=== PATIENT | female | born 1980 | race Caucasian/White ===

== ENCOUNTER 2018-01-07 16:13 | Observation (INO) ==
[2018-01-07] MEDS ORDERED: Ipratropium/Albuterol Neb 3 ML IH ONE (19:53)
[2018-01-07] MEDS ORDERED: methylPREDNISolone 125 MG/2 ML VIAL IVP ONE (19:53)
--- NOTE | 2018-01-07 19:59 | Emergency Department Note ---
Disposition Clinical Impression: Hypoxia, Tobacco abuse COPD (chronic obstructive pulmonary disease) Qualifiers: COPD type: unspecified COPD Qualified Code(s): J44.9 - Chronic obstructive pulmonary disease, unspecified Disposition: Admitted As Inpatient Condition: Fair Referrals: Liss Bonds CNP [Primary Care Provider] - Forms: ED Satisfaction Letter Time of Disposition: 21:06 General Adult HPI - General Chief complaint: ED General Medical Stated complaint: "seizure earlier today, O2 sat low" Time Seen by Provider: 01/07/18 19:11 Source: patient Mode of arrival: ambulatory Limitations: no limitations Nursing Notes Reviewed: Yes Vital Signs Reviewed: Yes - History of Present Illness HPI Narrative: 37-year-old female persists for evaluation seizure earlier today. Patient had a seizure which is similar to her prior seizures. Noted to be staring off into space while at work. Lasted less than a minute. No tongue biting or urinary incontinence. Patient states that she did get an EEG and has followed with neurology. Notes to have started on lamotrigine. Patient was noted be hypoxic at her doctor's office earlier today in the 80s. Patient does not take oxygen at home. Patient does wear some supplemental oxygen while on BiPAP at night. Patient reports dyspnea with a nonproductive cough for the past 3-4 days.. Patient denies any fevers. States she continues to smoke. No chest pain. No history of PE or DVTs. Pain Scale: 0 - Related Data Home Medications Medication Instructions Recorded Confirmed Carvedilol [Coreg] 6.25 mg PO BIDWM 09/15/17 11/23/17 Spironolactone [Aldactone] 25 mg PO DAILY 09/15/17 11/23/17 Fluticasone/Vilanterol [Breo 1 each IH BID 11/23/17 11/23/17 Ellipta 100-25 Mcg INH] Amlodipine Besylate 10 mg PO DAILY 01/07/18 01/07/18 Cholecalciferol (D-3) [Vitamin D] 1,000 unit PO DAILY 01/07/18 01/07/18 Lisinopril [Zestril] 40 mg PO DAILY 01/07/18 01/07/18 Potassium Chloride [K-Tab ER] 20 meq PO DAILY 01/07/18 01/07/18 hydroCHLOROthiazide 25 mg PO DAILY 01/07/18 01/07/18 [Hydrochlorothiazide] lamoTRIgine [Lamictal] 50 mg PO HS 01/07/18 01/07/18 Allergies Allergy/AdvReac Type Severity Reaction Status Date / Time levetiracetam [From [facility]] Allergy Rash Verified 01/07/18 17:08 Penicillins [PCN] Allergy Vomiting Verified 01/07/18 17:08 All systems ED: reviewed and negative except as stated. 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 - Social History Smoking Status: Current every day smoker Smokeless Tobacco Status: No (1-1.5 packs) Alcohol use: Reports: none Drug use: Reports: none Physical Exam - General Limitations: no limitations General appearance: alert, in no apparent distress, obese - Head Head exam: atraumatic, normocephalic, normal inspection - Eye Eye exam: Present: normal appearance, PERRL, EOMI - ENT ENT exam: normal exam, mucous membranes moist - Neck Neck exam: Present: normal inspection - Chest Chest inspection: Present: normal inspection, symmetric chest wall rise - Respiratory Respiratory exam: Present: wheezes (Inspiratory expiratory wheeze throughout), prolonged expiratory phase - Cardiovascular Cardiovascular exam: Present: regular rate - Abdominal Exam Abdominal exam: Present: soft, Non-Tender - Extremities Exam Extremities exam: Present: normal inspection. Absent: pedal edema - Back Exam Back exam: Present: normal inspection - Neurological Exam Neurological exam: Present: alert - Skin Skin exam: Present: warm, dry, intact, normal color Course Course Narrative: Patient was 90% on room air arrest. Patient is requiring some supplemental oxygen at baseline currently. Patient will get nebs, steroids. Disposition pending. - Reevaluation(s) Reevaluation #1: Repeat lung exam shows patient's aeration improved however the patient is continues to have bibasilar and respiratory wheezes throughout. Will re-dose the patient's nebs. Time: 20:47 Vital Signs Temperature 98.3 F 01/07/18 17:06 Pulse Rate 63 01/07/18 17:06 Respiratory Rate 18 01/07/18 17:06 Blood Pressure 100/66 01/07/18 17:06 O2 Sat by Pulse Oximetry 91 01/07/18 17:06 Temperature 98.3 F 01/07/18 19:38 Pulse Rate 57 01/07/18 19:38 Respiratory Rate 20 01/07/18 20:25 Blood Pressure 111/58 01/07/18 20:25 O2 Sat by Pulse Oximetry 92 01/07/18 20:25 Oxygen Delivery Oxygen Delivery Nasal Cannula Medical Decision Making - MDM Narrative Medical decision making narrative: 37 year old female percent following a seizure. Patient was noted be hypoxic on room air. Patient is requiring some supplemental oxygen. Patient's lungs reveal his respiratory respiratory wheezes throughout. Patient was treated with nebs as well as steroids. Patient has a 3-4 L [place] requirement at baseline. As the patient is requiring oxygen and does not have oxygen at baseline in the past the patient will be admitted to the hospital service for oxygen supplementation as well as nebs. Patient has had a nonproductive cough for the past 3-4 days. Antibiotics were not initiated in the ED as the patient has no findings suggestive of pneumonia and the patient's cough is been nonproductive. Patient d-dimer was negative as the patient is deemed low risk for PE. Patient was started on Rocephin and Zithromax given the patient's oxygen requirement as well as lung exam. Sputum culture was ordered at the recommendation of hospitalist. - Lab Data Lab results reviewed: Yes I reviewed the patient's lab results. Result diagrams: 01/07/18 19:29 01/07/18 19:29 Lab Results 01/07/18 01/07/18 01/07/18 Range/Units 19:29 19:29 19:56 WBC 8.7 (4.3-11.1) K/mcL RBC 5.39 H (3.82-4.97) M/mcL Hgb 16.0 H (11.5-15.4) g/dL Hct 48.4 H (35.3-44.9) % MCV 89.8 (83.0-100.0) fL MCH 29.7 (28.0-33.3) pg MCHC 33.1 (31.6-35.5) g/dL RDW 13.2 (11.5-14.5) % Plt Count 200 (140-400) K/mcL MPV 10.8 (9.4-12.4) fL Immature Gran % 0.3 (0-4) % Seg Neutrophils % 57.6 % Lymphocytes % 33.7 % Monocytes % 6.2 % Eosinophils % 1.7 % Basophils % 0.5 % Neutrophils # 5.0 (1.6-8.9) K/mcL Lymphocytes # 2.9 (0.6-4.6) K/mcL Monocytes # 0.5 (0.0-1.3) K/mcL Eosinophils # 0.2 (0.0-0.6) K/mcL Basophils # 0.0 (0.0-0.2) K/mcL D-Dimer 492 (0-500) ng/mLFEU Sodium 135 L (136-145) mEq/L Potassium 3.7 (3.5-5.1) mEq/L Chloride 99 (98-107) mEq/L Carbon Dioxide 32 H (23-29) mEq/L BUN 15 (6-20) mg/dL Creatinine 0.90 (0.60-1.20) mg/dL Est GFR ( Amer) > 60 (> 60) Est GFR (Non-Af Amer) > 60 (> 60) BUN/Creatinine Ratio 17 (6-26) Glucose 92 (70-105) mg/dL Calculated Osmolality 280 (280-300) Calcium 9.4 (8.6-10.3) mg/dL Troponin I < 0.03 (< 0.04) ng/mL - Radiology Data Radiology results reviewed: Yes I reviewed the patient's radiology results. Chest X-Ray 01/07/18 17:36 IMPRESSION: Linear scarring versus atelectasis in the left parahilar lung. D/ / Miguelangel Oconnell MD / Miguelangel Oconnell MD Interpreting Provider: Miguelangel Oconnell MD - EKG Data EKG #1 EKG attestation: Yes I reviewed and interpreted this EKG. EKG shows normal: sinus rhythm Rate: normal Rhythm: NSR [place]/QRS: normal T wave inversions noted in: v1 Interpretation: no acute changes, nonspecific ST-T wave changes
[2018-01-07 20:02] LABS: Basophils % 0.5 %; Eosinophils # 0.2 K/mcL (0.0-0.6); Eosinophils % 1.7 %; Hematocrit 48.4 % (35.3-44.9); Immature Granulocytes % 0.3 % (0-4); Lymphocytes # 2.9 K/mcL (0.6-4.6); Lymphocytes % 33.7 %; Mean Corpuscular HGB Conc 33.1 g/dL (31.6-35.5); Mean Corpuscular Hemoglobin 29.7 pg (28.0-33.3); Mean Corpuscular Volume 89.8 fL (83.0-100.0); Mean Platelet Volume 10.8 fL (9.4-12.4); Monocytes # 0.5 K/mcL (0.0-1.3); Monocytes % 6.2 %; Platelet Count 200 K/mcL (140-400); Red Blood Count 5.39 M/mcL (3.82-4.97); Red Cell Distribution Width 13.2 % (11.5-14.5); Segmented Neutrophils % 57.6 %
[2018-01-07 20:21] LABS: BUN/Creatinine Ratio 17 (6-26); Blood Urea Nitrogen 15 mg/dL (6-20); Calcium 9.4 mg/dL (8.6-10.3); Carbon Dioxide 32 mEq/L (23-29); Chloride 99 mEq/L (98-107); Glucose 92 mg/dL (70-105); Osmolality,Calculated 280 (280-300); Potassium 3.7 mEq/L (3.5-5.1); Sodium 135 mEq/L (136-145); Troponin I < 0.03 ng/mL (< 0.04); eGFR For Non-African Americans > 60 (> 60)
[2018-01-07] MEDS: Ipratropium/Albuterol Neb 3 ML IH ONE ×2 (21:03→23:07)
[2018-01-07] MEDS ORDERED: Nicotine 21 MG PATCH.TD24 TD ONE (21:05)
[2018-01-07] MEDS ORDERED: Azithromycin 500 MG in D5% in Water 250 ML IVPB ONE (21:23)
[2018-01-07] MEDS ORDERED: cefTRIAXone 1,000 MG in Water for inj. (sterile) 20 ML 10 ML IVP ONE (21:23)
--- NOTE | 2018-01-07 21:26 | Emergency Department Note ---
Disposition Clinical Impression: Hypoxia, Tobacco abuse COPD (chronic obstructive pulmonary disease) Qualifiers: COPD type: unspecified COPD Qualified Code(s): J44.9 - Chronic obstructive pulmonary disease, unspecified Disposition: Admitted As Inpatient Condition: Fair Referrals: Liss Bonds CNP [Primary Care Provider] - Forms: ED Satisfaction Letter General Adult HPI - General Chief complaint: ED General Medical Stated complaint: "seizure earlier today, O2 sat low" Time Seen by Provider: 01/07/18 19:11 Source: patient Mode of arrival: ambulatory Limitations: no limitations - History of Present Illness Pain Scale: 0 - Related Data Home Medications Medication Instructions Recorded Confirmed Carvedilol [Coreg] 6.25 mg PO BIDWM 09/15/17 01/07/18 Spironolactone [Aldactone] 25 mg PO DAILY 09/15/17 01/07/18 Fluticasone/Vilanterol [Breo 1 each IH BID 11/23/17 01/07/18 Ellipta 100-25 Mcg INH] Amlodipine Besylate 10 mg PO DAILY 01/07/18 01/07/18 Cholecalciferol (D-3) [Vitamin D] 1,000 unit PO DAILY 01/07/18 01/07/18 Lisinopril [Zestril] 40 mg PO DAILY 01/07/18 01/07/18 Potassium Chloride [K-Tab ER] 20 meq PO DAILY 01/07/18 01/07/18 hydroCHLOROthiazide 25 mg PO DAILY 01/07/18 01/07/18 [Hydrochlorothiazide] lamoTRIgine [Lamictal] 50 mg PO HS 01/07/18 01/07/18 Allergies Allergy/AdvReac Type Severity Reaction Status Date / Time levetiracetam [From [facility]] Allergy Rash Verified 01/07/18 17:08 Penicillins [PCN] Allergy Vomiting Verified 01/07/18 17:08 Constitutional: Denies: fever Cardiovascular: Denies: chest pain Respiratory: Denies: cough, dyspnea Gastrointestinal: Denies: abdominal pain, nausea, vomiting Past Medical History - Past Medical History Medical history: Reports: asthma, COPD, coronary artery disease, hypertension, seizures, other Surgical history: Reports: Psychiatric history: Reports: anxiety, depression, panic disorder 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 - Social History Smoking Status: Current every day smoker Smokeless Tobacco Status: No (1-1.5 packs) Alcohol use: Reports: none Drug use: Reports: none Physical Exam - General Limitations: no limitations General appearance: alert, in no apparent distress, obese Course Vital Signs Temperature 98.3 F 01/07/18 17:06 Pulse Rate 63 01/07/18 17:06 Respiratory Rate 18 01/07/18 17:06 Blood Pressure 100/66 01/07/18 17:06 O2 Sat by Pulse Oximetry 91 01/07/18 17:06 Temperature 98.3 F 01/07/18 19:38 Pulse Rate 57 01/07/18 19:38 Respiratory Rate 20 01/07/18 20:25 Blood Pressure 111/58 01/07/18 20:25 O2 Sat by Pulse Oximetry 92 01/07/18 20:25 Oxygen Delivery Oxygen Delivery Nasal Cannula Medical Decision Making - Lab Data Result diagrams: 01/07/18 19:29 01/07/18 19:29 Lab Results 01/07/18 01/07/18 01/07/18 Range/Units 19:29 19:29 19:56 WBC 8.7 (4.3-11.1) K/mcL RBC 5.39 H (3.82-4.97) M/mcL Hgb 16.0 H (11.5-15.4) g/dL Hct 48.4 H (35.3-44.9) % MCV 89.8 (83.0-100.0) fL MCH 29.7 (28.0-33.3) pg MCHC 33.1 (31.6-35.5) g/dL RDW 13.2 (11.5-14.5) % Plt Count 200 (140-400) K/mcL MPV 10.8 (9.4-12.4) fL Immature Gran % 0.3 (0-4) % Seg Neutrophils % 57.6 % Lymphocytes % 33.7 % Monocytes % 6.2 % Eosinophils % 1.7 % Basophils % 0.5 % Neutrophils # 5.0 (1.6-8.9) K/mcL Lymphocytes # 2.9 (0.6-4.6) K/mcL Monocytes # 0.5 (0.0-1.3) K/mcL Eosinophils # 0.2 (0.0-0.6) K/mcL Basophils # 0.0 (0.0-0.2) K/mcL D-Dimer 492 (0-500) ng/mLFEU Sodium 135 L (136-145) mEq/L Potassium 3.7 (3.5-5.1) mEq/L Chloride 99 (98-107) mEq/L Carbon Dioxide 32 H (23-29) mEq/L BUN 15 (6-20) mg/dL Creatinine 0.90 (0.60-1.20) mg/dL Est GFR ( Amer) > 60 (> 60) Est GFR (Non-Af Amer) > 60 (> 60) BUN/Creatinine Ratio 17 (6-26) Glucose 92 (70-105) mg/dL Calculated Osmolality 280 (280-300) Calcium 9.4 (8.6-10.3) mg/dL Troponin I < 0.03 (< 0.04) ng/mL Attestation Statement - Attestation Attestation: I examined this patient and my medical decision-making was reviewed with the Resident Physician. I agree with the documented findings, disposition and treatment plan as described except to the extent set forth below. 37 year old female who has a history of seizure like activity but does not take seizure medications presntes to the ED after having a pyschosomatic seizure but did become hypoxic today to 80% for her PCP. PAtient states she has been exposed to viral URI type symptoms by other family members and has felt febrile at home and has a hsitroy of assthma and feels like she has needed to increased her oxygen requirements at home. PAtinet states that this has happened to her inthe past with her bronchtis flare. She is 91% on 3LNC. We have given breathing treatments and steroids and ABX and will admit to medicine
[2018-01-08] MEDS: Ipratropium/Albuterol Neb 3 ML IH SCH ×3 (03:52→15:51)
[2018-01-08] MEDS ORDERED: Naloxone 0.4 MG/ML INJ IVP PRN (07:47)
--- NOTE | 2018-01-08 08:04 | Internal Med History&Physical ---
Date of Encounter: 01/08/18 Time of Encounter: 07:57 Internal Medicine - H&P: HPI Chief complaint: Hypoxia, Seizure Admitted From: Home Plans for Post Hospital Care: Home History of present illness: Ms. Cross is a 37 year old female with a past medical history of asthma, COPD, seizure disorder who presented to the emergency department for evaluation after breakthrough seizure earlier in the day. Patient has a history of seizure disorder and has recently been started on lamotrigine. Patient states that her seizures mainly consist of absent seizures and was told at work that she was staring off. Patient states that her seizures have been overall much improved since starting lamotrigine 1 week ago. Patient also had an office appointment yesterday afternoon and was noted to be hypoxic in the mid 80s via pulse oximetry. Patient states that she has recently developed a productive cough and has multiple sick family members. Patient was given IV antibiotics as well as IV steroids in the emergency department and states her breathing is improved from admission. Patient denies any fevers at home denies any chest pain, nausea , vomiting, diarrhea, headache, blurry vision, double vision. Patient had no loss of bowel or bladder function during reported seizure event. Patient had no tongue lacerations reported. Patient has been on BiPAP overnight. Patient states she has BiPAP at home. Past Med Surg Social Fam HX - Past Medical History Medical history: asthma, COPD, coronary artery disease, hypertension, seizures, other Additional medical history: "stiff heart", sleep apnea Psychiatric history: anxiety, depression, panic disorder - Past Surgical History Surgical History: Additional surgical history: tubal, heart cath (no stents, 10/10/15) - Social History Smoking Status: Current every day smoker Smokeless Tobacco Status: No (1-1.5 packs) Alcohol use: none Drug use: none - Family History Father History Unknown: Yes Adopted: No Living Status: Hx Family Cardiac Disorders: Yes Hx Family Respiratory Disorders: No Hx Family Cancer: No Hx Family GI Disorders: No Hx Family Endocrine Disorder: No Hx Family Neuromuscular Disorders: No Hx Family Neurologic Disorders: No Hx Family HEENT Disorders: No Hx Family Autoimmune Disorders: No Internal Medicine - H&P: Meds Carvedilol [Coreg] 6.25 mg PO BIDWM 09/15/17 [History] Spironolactone [Aldactone] 25 mg PO DAILY 09/15/17 [History] Fluticasone/Vilanterol [Breo Ellipta 100-25 Mcg INH] 1 each IH BID 11/23/17 [ History] Amlodipine Besylate 10 mg PO DAILY 01/07/18 [History] Cholecalciferol (D-3) [Vitamin D] 1,000 unit PO DAILY 01/07/18 [History] Lisinopril [Zestril] 40 mg PO DAILY 01/07/18 [History] Potassium Chloride [K-Tab ER] 20 meq PO DAILY 01/07/18 [History] hydroCHLOROthiazide [Hydrochlorothiazide] 25 mg PO DAILY 01/07/18 [History] lamoTRIgine [Lamictal] 50 mg PO HS 01/07/18 [History] 3 Allergy/AdvReac Type Severity Reaction Status Date / Time levetiracetam [From [facility]] Allergy Rash Verified 01/07/18 17:08 Penicillins [PCN] AdvReac Vomiting Verified 01/08/18 07:36 All Systems PM: A 10-system review of systems was performed and is negative for pertinent findings except as documented above in the HPI. Review of systems: 10 point review of systems obtained and is otherwise negative other than described in history of present illness - Constitutional Vitals: Temp Pulse Resp BP Pulse Ox 98.3 F 63 17 112/60 93 01/08/18 04:53 01/08/18 04:53 01/08/18 04:53 01/08/18 04:53 01/08/18 04:53 Exam: Constitutional: No acute distress, Alert, on bipap Psych: AAO x 3 HEENT: NCAT, EOMI Neck: supple, no JVD Cardio: regular rate and rhythm, +s1s2, no murmurs/rubs/gallops, no JVD Resp: diffuse inspiratory and expiratory wheezes, no accessory muscle use Abd: obese, soft, non tender/non distended, positive bowel sounds, no gaurding/ reboud/ridgitity Extremities: no clubbing/cyanosis/edema appreciated Neuro: no focal deficits appreciated Lymph: no cervical/supraclavicular adenopahty apprecitated Internal Med - H&P Results - Labs CBC & Chem 7: 01/07/18 19:29 01/07/18 19:29 - Assessment and plan (1) Acute and chronic respiratory failure with hypoxia Current Visit: Yes Status: Acute Assessment and plan: Patient with acute hypoxic respiratory failure with chronic respiratory failure requiring home oxygen supplementation -Likely secondary to bronchitis viral versus bacterial etiology -Improved with IV steroids; will continue and transition to by mouth for 2 week taper -Discussed with pulmonology -Continue azithromycin for 5 days; given 1 dose of Rocephin in ED -Obtain sputum sample -Duo nebs -BiPAP when necessary and daily at bedtime -Echo ordered by pulmonary for evaluation of pulmonary hypertension (2) Breakthrough seizure Current Visit: Yes Status: Acute Assessment and plan: Patient with reported breakthrough seizure yesterday. -Reported seizures are much more controlled since starting lamotrigine 1 week ago with this being the only breakthrough seizure -the patient states that she was having many siezures every day or 2 prior to this -Continue lamotrigine -Outpatient neurology follow-up (3) RACHELLE (obstructive sleep apnea) Current Visit: Yes Status: Acute Assessment and plan: -Continue bipap qhs -echo for eval of pulm htn (4) Morbid obesity Current Visit: Yes Status: Acute Assessment and plan: Counseled on lifestyle modifications (5) Tobacco dependence due to cigarettes Current Visit: Yes Status: Acute Assessment and plan: Counseled on cessation from tobacco (6) Hypertension Current Visit: Yes Status: Acute Assessment and plan: Continue home medications -blood pressure controlled Qualifiers: Hypertension type: essential hypertension Qualified Code(s): I10 - Essential (primary) hypertension - Time Spent With Patient Total time spent is greater than 50% in coordination of care (as documented) at patient's floor/unit and/or counseling patient: Greater than 35 minutes
--- NOTE | 2018-01-08 08:18 | Pulmonology Consult Note ---
Date of Encounter: 01/08/18 Time of Encounter: 08:16 Assessment and Plan (1) Acute and chronic respiratory failure with hypoxia Current Visit: Yes Status: Acute Patient has evidence of acute on chronic hypoxemia. She will need to wear supplemental oxygen at all times to keep saturation greater than 88%. 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 I explained to her that the profession she could not from pulmonary standpoint not continue because the risk of inducing seizures in which could precipitate neurological damage including anoxic brain injury along with sudden cardiac from underlying pulmonary hypertension and that she would need to wear oxygen 24 hours a day and most likely. At this point she is refusing to do that despite the risk of that outlined above. I do recommend that she have walking walking pulse oximetry prior to discharge to (6 minute walk test) to confirm the amount of supplemental oxygen she will need with exertion she does have portable tanks at home (2) COPD exacerbation Current Visit: Yes Status: Acute Continue IV steroids today can be transitioned to oral glucocorticoids 40 mg of prednisone which can be tapered over the next 2 weeks Her current regimen for COPD includes Breo which she should use 1 puff daily Recommend nebulized duo nebs every 6 hours scheduled with the albuterol for breakthrough shortness of breath I have added on a respiratory infection panel and I think that azithromycin (Z- Kostas) would be appropriate antimicrobial coverage pending results of sputum and respiratory infectious panel. (3) Tobacco abuse Current Visit: Yes Status: Acute It is imperative that patient stop smoking and I have given her extensive tobacco cessation counseling (4) Breakthrough seizure Current Visit: Yes Status: Acute (5) RACHELLE (obstructive sleep apnea) Current Visit: Yes Status: Acute Continue BiPAP at night she is following with [facility] for optimization of her RACHELLE (6) Morbid obesity Current Visit: Yes Status: Acute Weight loss encouraged to exercise as tolerated and portion control and heart healthy diet (7) Pulmonary hypertension Current Visit: Yes Status: Acute This is a combination of WHO group 2 and group 3 pulmonary hypertension I stressed the absolute importance of supplemental oxygen wearing BiPAP at night for treatment of a pulmonary hypertension and continuing to follow with [facility] for treatment of diastolic heart failure I have requested an echocardiogram be done while inpatient along with a CT scan of her chest for further consideration of etiologies of her pulmonary hypertension and degree of right ventricular dysfunction She has undergone a VQ scan in the past which was negative for acute or chronic venous thromboembolism at that time I believe this was in 2016 From a pulmonary standpoint if patient stable through the course of the day I think he will be safe for her to be discharged later in the afternoon/early evening after testing has been completed she will need outpatient pulmonary follow-up within 1-2 weeks his impaired that she wear oxygen. Thank you very much for this consultation I discussed my impression and plan directly with the primary hospitalist Dr. Sosa History of Present Illness Consult date: 01/08/18 Requesting physician: Marcello Sosa Reason for consult: hypoxemia Chief complaint: Difficulty in Breathing History of present illness: This is a very pleasant 37-year-old woman who had the pleasure of meeting for the first time yesterday in pulmonary clinic where she presented with acute on chronic hypoxic respiratory failure secondary to COPD exacerbation she also suffers from underlying RACHELLE pulmonary hypertension which is combination of chronic hypoxemia and diastolic heart failure she also has a history of long- standing seizure disorders and in fact had had a seizure earlier in the day at work prior to presentation to the outpatient pulmonary clinic given complexity of situation for her own safety recommend that she be observed for 24 hours in the hospital as she was hypoxemic on arrival to the outpatient clinic. Since she has been admitted to the hospital she is receiving IV steroids and a dose of azithromycin chest x-ray was clear evidence of pneumonia but there may be some focal atelectasis versus linear scarring. She has been quite stable otherwise and says no further episodes of seizures she does notice some wheezing today Past Med Surg Social Fam HX - Past Medical History Medical history: asthma, COPD, coronary artery disease, hypertension, seizures, other Additional medical history: "stiff heart", sleep apnea Psychiatric history: anxiety, depression, panic disorder - Past Surgical History Surgical History: Additional surgical history: tubal, heart cath (no stents, 10/10/15) - Social History Smoking Status: Current every day smoker Smokeless Tobacco Status: No (1-1.5 packs) Alcohol use: none Drug use: none - Family History Father History Unknown: Yes Adopted: No Living Status: Hx Family Cardiac Disorders: Yes Hx Family Respiratory Disorders: No Hx Family Cancer: No Hx Family GI Disorders: No Hx Family Endocrine Disorder: No Hx Family Neuromuscular Disorders: No Hx Family Neurologic Disorders: No Hx Family HEENT Disorders: No Hx Family Autoimmune Disorders: No Medications and Allergies Carvedilol [Coreg] 6.25 mg PO BIDWM 09/15/17 [History] Spironolactone [Aldactone] 25 mg PO DAILY 09/15/17 [History] Fluticasone/Vilanterol [Breo Ellipta 100-25 Mcg INH] 1 each IH BID 11/23/17 [ History] Amlodipine Besylate 10 mg PO DAILY 01/07/18 [History] Cholecalciferol (D-3) [Vitamin D] 1,000 unit PO DAILY 01/07/18 [History] Lisinopril [Zestril] 40 mg PO DAILY 01/07/18 [History] Potassium Chloride [K-Tab ER] 20 meq PO DAILY 01/07/18 [History] hydroCHLOROthiazide [Hydrochlorothiazide] 25 mg PO DAILY 01/07/18 [History] lamoTRIgine [Lamictal] 50 mg PO HS 01/07/18 [History] 3 Allergy/AdvReac Type Severity Reaction Status Date / Time levetiracetam [From [facility]] Allergy Rash Verified 01/07/18 17:08 Penicillins [PCN] AdvReac Vomiting Verified 01/08/18 07:36 All Systems: The remainder of the systems were reviewed and are negative Physical Examination Vital Signs: Vital Signs, Last 4 Hours Temp Pulse Resp BP Pulse Ox 01/08/18 04:53 98.3 F 63 17 112/60 93 01/08/18 04:29 94 General appearance: no acute distress Eyes: nonicteric ENT: oropharynx moist Mallampati (class): 4 Neck: supple Effort: mildly labored Auscultation: bilateral: diminished breath sounds, wheezes (Patient has evidence of inspiratory and expiratory wheezing and almost all lung diane except the anterior left) Cardiovascular: regular rate and rhythm Gastrointestinal: normoactive bowel sounds, soft, non-tender, other (There is an umbilical hernia hernia present) Integumentary: normal Extremities: no cyanosis, no clubbing, edema Musculoskeletal: no deformities normal mental status, non-focal exam mood appropriate Results - Laboratory Findings CBC and BMP: 01/07/18 19:29 01/07/18 19:29 PT/INR, D-dimer D-Dimer 492 ng/mLFEU (0-500) 01/07/18 19:56 Abnormal lab findings: Abnormal lab results RBC 5.39 M/mcL (3.82-4.97) H 01/07/18 19:29 Hgb 16.0 g/dL (11.5-15.4) H 01/07/18 19:29 Hct 48.4 % (35.3-44.9) H 01/07/18 19:29 Sodium 135 mEq/L (136-145) L 01/07/18 19:29 Carbon Dioxide 32 mEq/L (23-29) H 01/07/18 19:29 - Diagnostic Findings Chest x-ray: report reviewed, image reviewed - Clinical Findings Intake & Output: Intake & Output 01/07/18 01/08/18 01/08/18 23:59 07:59 15:59 Weight 146.284 kg Consult Discharge Plan - Plan Referrals: Liss Bonds, LANGUAGE AND LITERATURE DIVISION CHAIR [Primary Care Provider] -
[2018-01-08 08:27] LABS: Basophils % 0.1 %; Hematocrit 49.2 % (35.3-44.9); Hemoglobin 16.2 g/dL (11.5-15.4); Immature Granulocytes % 0.7 % (0-4); Lymphocytes % 14.2 %; Mean Corpuscular HGB Conc 32.9 g/dL (31.6-35.5); Mean Platelet Volume 10.2 fL (9.4-12.4); Monocytes # 0.1 K/mcL (0.0-1.3); Monocytes % 1.1 %; Neutrophils # 5.9 K/mcL (1.6-8.9); Platelet Count 196 K/mcL (140-400); Red Blood Count 5.59 M/mcL (3.82-4.97); Red Cell Distribution Width 12.9 % (11.5-14.5); Segmented Neutrophils % 83.9 %
[2018-01-08 08:32] VITALS: BP 102/66
--- NOTE | 2018-01-08 08:34 | Neurology - Consult Note ---
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 Plan : Add Vimpat 50 mg PO BID Continue Lamotrigin 50 mg HS History of Present Illness Chief complaint: Seizure disorder HPI: Ms. Cross is a 37 year old female with a past diagnosis of seizure disorder who was admitted to [facility] via ED for evaluation of seizure disorder She states that she has had seizure - absence type for more than a year and she is on lamotrigin . She is taking her medication regularly, never misses doses. She has more frequent attack recently. The last episode was on last sunday and recent one was on yesterday noon.. It did last for about less than 1 minutes / sometime 5-10 second. She states that during attack she stares, has lapse of memory and unresponsive . She didn't have seizure activity since admission. She denies stiffness in the limbs,nausea , vomiting, post ictal confusion . She is the patient of chronic asthma and COPD with hypoxic episode .Vitals Tem 98.3, Pulse 63, BP 112/60 sat 93 , Lab : WBC 7.1 Na 135, K 3.7 BUN 15, creatinine 0.90 , glucose 92 Chest Echo awaited Past Med Surg Social Fam HX - Past Medical History Medical history: asthma, COPD, coronary artery disease, hypertension, seizures, other Additional medical history: "stiff heart", sleep apnea Psychiatric history: anxiety, depression, panic disorder - Past Surgical History Surgical History: Additional surgical history: tubal, heart cath (no stents, 10/10/15) - Social History Smoking Status: Current every day smoker Smokeless Tobacco Status: No (1-1.5 packs) Alcohol use: none Drug use: none - Family History Father History Unknown: Yes Adopted: No Living Status: Hx Family Cardiac Disorders: Yes Hx Family Respiratory Disorders: No Hx Family Cancer: No Hx Family GI Disorders: No Hx Family Endocrine Disorder: No Hx Family Neuromuscular Disorders: No Hx Family Neurologic Disorders: No Hx Family HEENT Disorders: No Hx Family Autoimmune Disorders: No Medications and Allergies Carvedilol [Coreg] 6.25 mg PO BIDWM 09/15/17 [History] Spironolactone [Aldactone] 25 mg PO DAILY 09/15/17 [History] Fluticasone/Vilanterol [Breo Ellipta 100-25 Mcg INH] 1 each IH BID 11/23/17 [ History] Amlodipine Besylate 10 mg PO DAILY 01/07/18 [History] Cholecalciferol (D-3) [Vitamin D] 1,000 unit PO DAILY 01/07/18 [History] Lisinopril [Zestril] 40 mg PO DAILY 01/07/18 [History] Potassium Chloride [K-Tab ER] 20 meq PO DAILY 01/07/18 [History] hydroCHLOROthiazide [Hydrochlorothiazide] 25 mg PO DAILY 01/07/18 [History] lamoTRIgine [Lamictal] 50 mg PO HS 01/07/18 [History] Lacosamide [Vimpat] 50 mg PO BID 30 Days #60 tablet 01/08/18 [Rx] levoFLOXacin [Levaquin] 750 mg PO DAILY 7 Days #7 tablet 01/08/18 [Rx] predniSONE [PredniSONE] 10 mg PO DAILY 12 Days #32 tablet 01/08/18 [Rx] 3 Allergy/AdvReac Type Severity Reaction Status Date / Time levetiracetam [From [facility]] Allergy Rash Verified 01/07/18 17:08 Penicillins [PCN] AdvReac Vomiting Verified 01/08/18 07:36 All Systems: The remainder of the systems were reviewed and are negative Physical Examination - Vital Signs Vital Signs: Initial Vital Signs Temp Pulse Resp BP Pulse Ox 98.3 F 63 18 100/66 91 01/07/18 17:06 01/07/18 17:06 01/07/18 17:06 01/07/18 17:06 01/07/18 17:06 - Constitutional General appearance: comfortable - Neurologic Sensorimotor examination: intact Detailed motor examination: grossly full strength in all extremities Motor examination - right side: 5/5: deltoids, biceps, triceps, wrist flexion, wrist extension, typesetters printer, hip flexors, tibialis Anterior, quadriceps, toe extension (EHL), plantarflexion Motor examination - left side: 55: deltoids, biceps, triceps, wrist flexion, wrist extension, hip flexors, typesetters printer, quadriceps, tibialis Anterior, toe extension (EHL), plantarflexion Detailed sensory examination: intact Reflex and gait examination: normal gait Reflexes: Biceps: 2+, Triceps: 2+, Brachioradialis: 2+, Patella: 2+, Achilles: 2 + Mental Status Examination: awake, alert, oriented to person, oriented to place, oriented to time, follows commands appropriately, answers questions appropriately, no aphasia Cerebellar examination: no dysmetria, performs finger to nose and heel to tucker symmetrically without ataxia, no gait ataxia Results - Laboratory Findings CBC and BMP: 01/08/18 08:03 01/07/18 19:29 Abnormal lab findings: Abnormal lab results RBC 5.39 M/mcL (3.82-4.97) H 01/07/18 19:29 Hgb 16.0 g/dL (11.5-15.4) H 01/07/18 19:29 Hct 48.4 % (35.3-44.9) H 01/07/18 19:29 Sodium 135 mEq/L (136-145) L 01/07/18 19:29 Carbon Dioxide 32 mEq/L (23-29) H 01/07/18 19:29 Consult Discharge Plan - Plan Referrals: Liss Bonds, METALSMITH HELPER [Primary Care Provider] - Prescriptions: Lacosamide [Vimpat] 50 mg PO BID 30 Days #60 tablet levoFLOXacin [Levaquin] 750 mg PO DAILY 7 Days #7 tablet predniSONE [PredniSONE] 10 mg PO DAILY 12 Days #32 tablet <Sherlyn Apodaca I - Last Filed: 01/08/18 16:23> Date of Encounter: 01/08/18 Assessment and Plan (1) Breakthrough seizure Current Visit: Yes Status: Acute Pt was seen and examined, my medical decision was reviewed with the Resident Physician, I agree with the documented findings, disposition and treatment plas as described except to the extent set forth below Patient with a known history of seizure disorder had an abnormal EEG has been following up with Dr. Marion in neurology clinic admitted with breakthrough seizures likely exacerbated by hypoxemia Currently she is on the low-esclating dose of lamotrigine that may take a while to start working as she is having these frequent episodes suggested to add another anticonvulsive agent like Vimpat 50 mg twice a day, and continue on lamotrigine for now The dose could be adjusted later on as an outpatient she can follow-up with Dr. Marion after the discharge From neurology standpoint she is a stable could be discharged with follow-up in few weeks Sherlyn Apodaca MD History of Present Illness HPI: Ms. Cross is a 37 year old female All Systems: The remainder of the systems were reviewed and are negative Physical Examination - Vital Signs Vital Signs: Initial Vital Signs Temp Pulse Resp BP Pulse Ox 98.3 F 63 18 100/66 91 01/07/18 17:06 01/07/18 17:06 01/07/18 17:06 01/07/18 17:06 01/07/18 17:06 Results - Laboratory Findings CBC and BMP: 01/08/18 08:03 01/07/18 19:29 Abnormal lab findings: Abnormal lab results RBC 5.59 M/mcL (3.82-4.97) H 01/08/18 08:03 Hgb 16.2 g/dL (11.5-15.4) H 01/08/18 08:03 Hct 49.2 % (35.3-44.9) H 01/08/18 08:03 Sodium 135 mEq/L (136-145) L 01/07/18 19:29 Carbon Dioxide 32 mEq/L (23-29) H 01/07/18 19:29
[2018-01-08] MEDS ORDERED: Cholecalciferol (D-3) 1,000 UNIT TABLET PO SCH (09:00)
[2018-01-08] MEDS ORDERED: amLODIPine 5 MG TABLET PO SCH (09:00)
[2018-01-08] MEDS ORDERED: NON-FORMULARY MEDICATION 1 EACH EACH (Fluticasone/Vilanterol [Breo Ellipta 100-25 Mcg Inh] IH SCH (09:00)
[2018-01-08] MEDS ORDERED: Spironolactone 25 MG TABLET PO SCH (09:00)
[2018-01-08] MEDS ORDERED: Lisinopril 20 MG TABLET PO SCH (09:00)
[2018-01-08] MEDS ORDERED: hydroCHLOROthiazide 25 MG TABLET PO SCH (09:00)
[2018-01-08] MEDS ORDERED: Budesonide/Formoterol 160/4.5 1 PUFF INH IH SCH (10:00)
[2018-01-08] MEDS: MethylPREDNISolone 40 MG/ML VIAL IVP SCH ×2 (11:48→15:05)
[2018-01-08] MEDS ORDERED: *HR* Heparin 5,000 UNIT/ML VIAL SQ SCH (14:00)
[2018-01-08] MEDS ORDERED: predniSONE 20 MG TABLET PO SCH (15:30)
--- NOTE | 2018-01-08 15:34 | Discharge Summary ---
- NOTES TO OUTPATIENT PROVIDER Notes to Outpatient Provider: Follow up outpatient with pulmonology and neurology. Left AMA prior to ECHO and 6 minute walk test. Orders not resulted at time of discharge: Pending orders 01/08/18 07:52 Respiratory Infection Panel [MOLMIC] Stat 01/08/18 07:53 EV echocardiogram w enhance Stat 01/08/18 16:00 Complete Blood Count [HEME] Q8H 01/09/18 04:00 Basic Metabolic Panel AM 0400 Date of Encounter: 01/08/18 Time of Encounter: 16:02 - Discharge Diagnosis (1) Acute and chronic respiratory failure with hypoxia Priority: Primary Status: Acute (2) Breakthrough seizure Priority: Secondary Status: Acute (3) RACHELLE (obstructive sleep apnea) Priority: Secondary Status: Acute (4) Morbid obesity Priority: Secondary Status: Acute (5) Tobacco dependence due to cigarettes Priority: Secondary Status: Acute (6) Hypertension Priority: Secondary Status: Acute Qualifiers: Hypertension type: essential hypertension Qualified Code(s): I10 - Essential (primary) hypertension Hospital course: Ms. Cross is a 37 year old female who presented with shortness of breath and hypoxia that was noted at outpatient pulmonology office in the mid 80s via pulse oximetry. Patient also with breakthrough seizure yesterday. Patient was admitted for observation and respiratory status improved. Pulmonology saw the patient and recommended 2 week prednisone taper as well as CT of the chest and echocardiogram to evaluate pulmonary hypertension. CT of the chest revealed multifocal pneumonia; the patient will be discharged on IV Levaquin for 7 days due to this with outpatient follow-up with pulmonology in 1-2 weeks. Patient was also seen by neurology for breakthrough seizure they recommended continuing lamotrigine and added Vimpat twice a day. Patient states she will not take the Vimpat however I told her I was giving her the prescription. The patient will not agree to have a 6 minute walk test and echocardiogram completed before discharge and is leaving AGAINST MEDICAL ADVICE. To provide her with the safest discharge possible the patient will be given a 2 week prednisone taper prescription as well as the Levaquin prescription as well as the Vimpat prescription. I told her to return to the ED for any worsening of symptoms and to wear her oxygen as prescribed and to follow up with her primary care physician within one week and pulmonology within 1-2 weeks. I believe the is the safest discharge plan given her leaving AMA. High risk for complications and deterioration including . Discharge discussed with: patient, family, nurse - Time Spent with Patient Total time spent providing and/or coordinating discharge services: Greater than 30 minutes - Discharge Medications Prescriptions: Lacosamide [Vimpat] 50 mg PO BID 30 Days #60 tablet levoFLOXacin [Levaquin] 750 mg PO DAILY 7 Days #7 tablet predniSONE [PredniSONE] 10 mg PO DAILY 12 Days #32 tablet Home Medications: Carvedilol [Coreg] 6.25 mg PO BIDWM 09/15/17 [History] Spironolactone [Aldactone] 25 mg PO DAILY 09/15/17 [History] Fluticasone/Vilanterol [Breo Ellipta 100-25 Mcg INH] 1 each IH BID 11/23/17 [ History] Amlodipine Besylate 10 mg PO DAILY 01/07/18 [History] Cholecalciferol (D-3) [Vitamin D] 1,000 unit PO DAILY 01/07/18 [History] Lisinopril [Zestril] 40 mg PO DAILY 01/07/18 [History] Potassium Chloride [K-Tab ER] 20 meq PO DAILY 01/07/18 [History] hydroCHLOROthiazide [Hydrochlorothiazide] 25 mg PO DAILY 01/07/18 [History] lamoTRIgine [Lamictal] 50 mg PO HS 01/07/18 [History] Lacosamide [Vimpat] 50 mg PO BID 30 Days #60 tablet 01/08/18 [Rx] levoFLOXacin [Levaquin] 750 mg PO DAILY 7 Days #7 tablet 01/08/18 [Rx] predniSONE [PredniSONE] 10 mg PO DAILY 12 Days #32 tablet 01/08/18 [Rx] Allergies/Adverse Reactions: 3 Allergy/AdvReac Type Severity Reaction Status Date / Time levetiracetam [From [facility]] Allergy Rash Verified 01/07/18 17:08 Penicillins [PCN] AdvReac Vomiting Verified 01/08/18 07:36 Date of admission: 01/07/18 23:30 Primary care physician: Liss Bonds CNP Consults: 01/08/18 07:46 Consult to Pulmonology [CONS] Routine Consulting Provider: [facility] Reason for Consult: hypoxic respiratory failure Call Completed: Yes 01/08/18 07:49 Consult to Physician [CONS] Routine Consulting Provider: Neurology [facility] Reason for Consult: breakthrough seizure Call Completed: Yes - Constitutional Vitals: Temp Pulse Resp BP Pulse Ox 97.7 F 70 18 102/66 95 01/08/18 08:28 01/08/18 08:28 01/08/18 10:39 01/08/18 08:28 01/08/18 10:39 Exam: Constitutional: No acute distress, Alert, on bipap Psych: AAO x 3 HEENT: NCAT, EOMI Neck: supple, no JVD Cardio: regular rate and rhythm, +s1s2, no murmurs/rubs/gallops, no JVD Resp: diffuse inspiratory and expiratory wheezes, no accessory muscle use Abd: obese, soft, non tender/non distended, positive bowel sounds, no gaurding/ reboud/ridgitity Extremities: no clubbing/cyanosis/edema appreciated Neuro: no focal deficits appreciated Lymph: no cervical/supraclavicular adenopahty apprecitated - Patient Status Disposition: Left Against Medical Advice Condition: Fair Functional capacity at discharge: independent ambulation Overall status at discharge: patient is progressing back to baseline - Discharge Instructions Follow Up With: Liss Bonds, HOSPITALITY COORDINATOR [Primary Care Provider] - - Diet and Activity Activity: increase activity as tolerated Diet: advance to your usual diet
[2018-01-08] MEDS ORDERED: lamoTRIgine 25 MG TABLET PO SCH (21:00)
[2018-01-08] MEDS ORDERED: Azithromycin 500 MG in D5% in Water 250 ML IVPB SCH (22:00)
--- NOTE | 2018-01-10 15:55 | Electrocardiograph Report ---
[address] [place] [address] Test Date: 2018-01-07 Pat Name: Stacy Cross Department: [id number] Room: 2A Gender: F Financial Secretary: : 1980 Requested By: Horacio Connolly Order Number: [id number] Reading MD: Demetrice Tarango Measurements Intervals [place] Rate: 63 P: 46 LA: 194 QRS: 14 QRSD: 94 T: 17 QT: 465 QTc: 476 Interpretive Statements Sinus rhythm Electronically Signed On 01-10-2018 15:53:34 EDT by Demetrice Tarango
== END 2018-01-08 16:16 | disposition left against medical advice (07) ==
LOC: 2ANU 16:13 → EMEROOARM 16:13 → 2ANU 23:59
PROVIDERS: ADMIT Pediatrics; ATTEND Pediatrics

== ENCOUNTER 2020-09-27 00:21 | Observation (INO) ==
[2020-09-27] MEDS ORDERED: Melatonin 3 MG TABLET PO PRN (04:17)
[2020-09-27] MEDS ORDERED: Naloxone 0.4 MG/ML INJ IVP PRN (04:17)
[2020-09-27] MEDS ORDERED: Acetaminophen 325 MG TABLET PO PRN (04:17)
[2020-09-27] MEDS ORDERED: *HR* Promethazine 25 MG/ML VIAL IM PRN (04:17)
[2020-09-27] MEDS ORDERED: Ondansetron 4 MG/2 ML VIAL IVP PRN (04:17)
[2020-09-27] MEDS ORDERED: *HR* HYDROcodone/Acet 5/325 mg TABLET PO PRN (04:17)
[2020-09-27] MEDS ORDERED: *HR* OxyCODONE Immed Rel 5 MG TABLET PO PRN (04:17)
[2020-09-27] MEDS ORDERED: Isovue-370 500 ML BOTTLE IVP ONE (05:13)
[2020-09-27] MEDS ORDERED: Ipratropium/Albuterol Neb 3 ML IH PRN (05:14)
[2020-09-27 05:30] LABS: Basophils % 0.1 %; Mean Corpuscular Volume 97.1 fL (83.0-100.0); Platelet Count 122 K/mcL (140-400); Red Cell Distribution Width 13.7 % (11.5-14.5)
[2020-09-27 05:32] LABS: Hematocrit 50.4 % (35.3-44.9); Hemoglobin 16.3 g/dL (11.5-15.4); Immature Granulocytes % 0.5 % (0-4); Immature Platelets 8.5 % (1.1-6.1); Lymphocytes # 0.9 K/mcL (0.6-4.6); Lymphocytes % 9.3 %; Mean Corpuscular HGB Conc 32.3 g/dL (31.6-35.5); Mean Corpuscular Hemoglobin 31.4 pg (28.0-33.3); Mean Platelet Volume 11.3 fL (9.4-12.4); Monocytes # 0.3 K/mcL (0.0-1.3); Monocytes % 3.2 %; Neutrophils # 8.1 K/mcL (1.6-8.9); Red Blood Count 5.19 M/mcL (3.82-4.97); Segmented Neutrophils % 86.9 %; White Blood Count 9.3 K/mcL (4.3-11.1)
[2020-09-27 05:38] LABS: INR 1.3; Prothrombin Time 15.4 Seconds (9.4-12.1)
[2020-09-27] MEDS ORDERED: *HR* Enoxaparin 150 MG/ML SYRINGE SQ SCH (06:00)
[2020-09-27 06:03] LABS: Alanine Aminotransferase 14 Units/L (7-52); Albumin 3.7 g/dL (3.5-5.7); Albumin/Globulin Ratio 1.1 (1.1-2.2); Alkaline Phosphatase 61 Units/L (34-104); Aspartate Amino Transferase 10 Units/L (13-39); BUN/Creatinine Ratio 26 (6-26); Bilirubin,Total 0.7 mg/dL (0.3-1.0); Blood Urea Nitrogen 21 mg/dL (6-20); Calcium 9.2 mg/dL (8.6-10.3); Carbon Dioxide 30 mEq/L (23-29); Chloride 96 mEq/L (98-107); Globulin 3.3 g/dL (2.4-3.5); Glucose 170 mg/dL (70-105); Magnesium 1.6 mg/dL (1.6-2.6); Osmolality,Calculated 289 (280-300); Potassium 4.3 mEq/L (3.5-5.1); Sodium 136 mEq/L (136-145); eGFR For African Americans > 60 (> 60); eGFR For Non-African Americans > 60 (> 60)
[2020-09-27] MEDS ORDERED: Perflutren Lipid Microsphere 1.3 ML in 0.9 % Sodium Chloride 8.7 ML IVP PRN (06:21)
[2020-09-27] MEDS ORDERED: Doxycycline 100 MG in 0.9 % Sodium Chloride Mini Bag 100 ML IVPB SCH (06:40)
[2020-09-27 07:48] LABS: ABG Base Excess 7 mEq/L (-2 to 3); ABG HCO3 36 mEq/L (21-27); ABG Oxygen Saturation 91 % (95-98); ABG PCO2 67 mmHg (35-45); ABG PH 7.34 pH Units (7.32-7.45); ABG PO2 68 mmHg (85-104); ABG TCO2 38 mEq/L (20-26); Blood Gas VT 14 cc
[2020-09-27] MEDS ORDERED: carvediloL 6.25 MG TABLET PO SCH (08:00)
[2020-09-27] MEDS ORDERED: Ipratropium/Albuterol Neb 3 ML IH SCH (08:00)
[2020-09-27] MEDS ORDERED: MethylPREDNISolone 40 MG/ML VIAL IVP SCH (08:00)
[2020-09-27] MEDS ORDERED: ALTEPLASE IVPB STA (08:00)
[2020-09-27] MEDS ORDERED: cefTRIAXone 1,000 MG in Water for inj. (sterile) 10 ML IVP SCH (09:00)
[2020-09-27] MEDS ORDERED: lamoTRIgine 100 MG TABLET PO SCH (09:00)
[2020-09-27] MEDS ORDERED: 0.9 % Sodium Chloride 250 ML ONE (09:31)
[2020-09-27 10:22] VITALS: BP 124/83
[2020-09-27] MEDS ORDERED: CLOBAZAM 20 MG PO SCH (21:00)
== END 2020-09-27 10:35 | disposition short-term general hospital (02) ==
LOC: 2NENU → SUATTDRO 02:51
PROVIDERS: ADMIT Internal Medicine; ATTEND Internal Medicine